=== PATIENT | female | born 1985 | race Two or more races ===

== ENCOUNTER 2025-01-29 08:08 | Emergency (ER) | payer MEDICAID, OTHER ==
[~2025-01-29] VITALS: Ht 165.1 cm; Wt 78.6 kg
--- NOTE | 2025-01-29 08:17 | ED.PDOC ---
History of Present Illness HPI Comments 39 y/o F, presents to the ED for CC of fever. Patient states, she has been experiencing symptoms of fever with associated diarrhea x3days. Patient reports, taking Tylenol last night (01/28/25) for symptoms. Upon arrival to the ED, patient's temperature read at 97.7F. Patient denies ear-pain, shortness of mary ath, chills, body-aches, or urinary symptoms. Chief Complaint: Fever Time Seen by MD: 08:15 Reviewed Notes: Nurses Notes, Medications, Allergies Information Source: Patient Mode of Arrival: Ambulatory Timing: Days Duration: Since onset Prehospital treatment: None Severity: Mild Symptoms: Fever Modifying Factors: Tylenol Associated Signs and Symptoms: None Past Medical History PAST MEDICAL HISTORY: Denies Surgical History: Denies all surgeries HOSPICE NURSE PRACTITIONER History: Denies all HOSPICE NURSE PRACTITIONER Hx Family History Family History: Unknown Social History Smoker: Non-Smoker Alcohol: Denies ETOH Use Drugs: Denies Drug Use Lives In: Home Constitutional: Fever EENTM: No Symptoms Reported Respiratory: No Symptoms Reported Cardiovascular: No Symptoms Reported Gastrointestinal: Diarrhea Genitourinary: No Symptoms Reported Neurological: No Symptoms Reported Musculoskeletal: No Symptoms Reported Integumentary: No Symptoms Reported Allergic/Immunocompromised: others Hematologic/Lymphatic: No Symptoms Reported Endocrine: No Symptoms Reported Psychiatric: No symptoms Reported All Other Systems: Reviewed and Negative Physical Exam General Appearance: No Apparent Distress, Normal, Other (Anxious appearing) HEENT: Normal ENT Inspection, Pharynx Normal Neck: Full Range of Motion, Non-Tender, Normal, Normal Inspection Respiratory: Chest Non-Tender, Lungs Clear, No Accessory Muscle Use, No Respiratory Distress, Normal Breath Sounds Cardiovascular: No Edema, No Murmur, No Gallop, Normal Peripheral Pulses, Regular Rate/Rhythm Breast Exam: Deferred Gastrointestinal: No Organomegaly, Non Tender, No Pulsatile Mass, Normal Bowel Sounds, Soft Genitalia: Deferred Pelvic: Deferred Rectal: Deferred Extremities: No calf tenderness, Normal capillary refill, Normal inspection, Normal range of motion, Non-tender, No pedal edema Musculoskeletal : Apperance: Normal Neurologic: Alert, annual greenhouse manager II-XII nml as Tested, No Motor Deficits, Normal Affect, Normal Mood, No Sensory Deficits Cerebellar Function: Normal Reflexes: Normal Skin: Dry, Normal Color, Warm Lymphatic: No Adenopathy Was a procedure done? Was a procedure done?: No Fever Differential Dx Differential Diagnosis: Viral Syndrome, Pharyngitis X-Ray, Labs, Meds, VS Vital Signs Date Time Temp Pulse Resp B/P (MAP) Pulse Ox O2 Delivery O2 Flow Rate FiO2 01/29/25 08:46 77 18 100 Room Air 01/29/25 08:46 98.2 77 18 112/81 (91) 100 98.2 01/29/25 08:10 97.7 79 15 106/86 98 97.7 Lab Test 01/29/25 09:32 01/29/25 08:43 Range/Units Urine Color Light-yellow Yellow Urine Clarity Turbid H Clear Urine pH 5.5 5.0-9.0 Urine Specific [place] 1.012 1.001-1.035 Urine Protein Negative Negative Urine Ketones Negative Negative Urine Blood 1+ H Negative /uL Urine Nitrite Negative Negative Urine Bilirubin Negative Negative Urine Urobilinogen Normal Negative mg/dL Urine Leukocyte Esterase Negative Negative /uL Urine RBC 2 0 - 4 /hpf Urine Microscopic WBC 2 0-5 /HPF Urine Squamous Epithelial Cells Few <5 /hpf Urine Bacteria None seen None Seen /hpf Urine Mucus Few None Seen Urine Glucose Normal Normal mg/dL White Blood Count 3.6 L 4.4-10.8 10^3/uL Red Blood Count 4.97 4.0-5.20 10^6/uL Hemoglobin 12.8 12.2-16.2 g/dL Hematocrit 39.5 36.0-46.0 % Mean Corpuscular Volume 79.5 L 80.0-100.0 fL Mean Corpuscular Hemoglobin 25.8 L 28.0-32.0 pg Mean Corpuscular Hemoglobin Concent 32.4 32.0-36.0 g/dL Red Cell Distribution Width 16.7 H 11.8-14.3 % Platelet Count 300 140-450 10^3/uL Mean Platelet Volume 8.1 6.9-10.8 fL Neutrophils (%) (Auto) 39.5 37.0-80.0 % Lymphocytes (%) (Auto) 43.2 10.0-50.0 % Monocytes (%) (Auto) 13.7 H 0.0-12.0 % Eosinophils (%) (Auto) 2.9 0.0-7.0 % Basophils (%) (Auto) 0.7 0.0-2.0 % Neutrophils # (Auto) 1.4 L 1.6-8.6 10 ^3/uL Lymphocytes # (Auto) 1.5 0.4-5.4 10 ^3/uL Monocytes # (Auto) 0.5 0-1.3 10 ^3/uL Eosinophils # (Auto) 0.1 0-0.8 10 ^3/uL Basophils # (Auto) 0 0-0.2 10 ^3/uL Nucleated Red Blood Cells 0.2 % Sodium Level 139 136-145 mmol/L Potassium Level 3.9 3.5-5.1 mmol/L Chloride Level 109 H 98-107 mmol/L Carbon Dioxide Level 22 20-31 mmol/L Anion Gap 8 5-15 Blood Urea Nitrogen 8 L 9-23 mg/dL Creatinine 0.75 0.550-1.02 mg/dL Glomerular Filtration Rate Calc 103 >90 mL/min BUN/Creatinine Ratio 10.7 10.0-20.0 Serum Glucose 89 74-106 mg/dL Calcium Level 9.1 8.7-10.4 mg/dL Current Medications Medications (Trade) Dose Ordered Sig/Isha Route Start Time Stop Time Status Last Admin Loperamide HCl (Imodium Capsule) 4 mg ONCE ONCE PO 01/29/25 08:30 01/29/25 08:32 DC 01/29/25 09:12 Sodium Chloride 1,000 ml @ 1,000 mls/hr Q1H ONCE IV 01/29/25 08:30 01/29/25 09:29 DC 01/29/25 09:12 Ondansetron HCl (Zofran) 4 mg ONCE ONCE IV 01/29/25 08:30 01/29/25 08:32 DC 01/29/25 09:11 Famotidine (Pepcid Injection) 20 mg ONCE ONCE IV 01/29/25 08:30 01/29/25 08:32 DC 01/29/25 09:11 Time of 1ST Reevaluation: 08:15 Reevaluation 1ST: Unchanged Patient Education/Counseling: Diagnosis, Treatment Family Education/Counseling: No Family Present Additional Information MEDICAL DECISION MAKING PRESENTATION & DIFFERENTIAL DIAGNOSIS 39-year-old female presenting with 3 days of vomiting, diarrhea, and subjective fevers. Differential diagnosis included Viral Gastroenteritis, Urinary Tract Infection (UTI), Bacterial Enteritis, Appendicitis, and dehydration/electrolyte derangement. DATA REVIEWED - CBC: No leukocytosis; rules out severe infectious etiology. - BMP: Benign; ruled out Acute Kidney Injury (MATIAS) and significant electrolyte imbalance despite history of GI losses. - UA: Unremarkable; ruled out UTI as source of symptoms. ED COURSE & RISK STRATIFICATION Patient required supportive care and parenteral management in the ED. - Interventions: IV Fluid resuscitation, Zofran for antiemesis, Loperamide for diarrhea, and Famotidine. - Re-evaluation: Symptoms improved post-intervention. Patient successfully completed a PO challenge (tolerating oral fluids) prior to discharge. DISPOSITION Discharge Home. - Diagnosis: Gastroenteritis. - Plan: Discharged with supportive care instructions, hydration plan, and strict return precautions for intractable vomiting, high fever, or localized abdominal pain. SEPSIS Sepsis Screen Vital Signs Date Time Temp Pulse Resp B/P (MAP) Pulse Ox O2 Delivery O2 Flow Rate FiO2 01/29/25 08:46 77 18 100 Room Air 01/29/25 08:46 98.2 77 18 112/81 (91) 100 98.2 01/29/25 08:10 97.7 79 15 106/86 98 97.7 Laboratory Tests Test 01/29/25 08:43 White Blood Count 3.6 10^3/uL (4.4-10.8) L Medications Medications Dose Ordered Sig/Isha Route Start Time Stop Time Status Last Admin Dose Admin Famotidine 20 mg ONCE ONCE IV 01/29/25 08:30 01/29/25 08:32 DC 01/29/25 09:11 Loperamide HCl 4 mg ONCE ONCE PO 01/29/25 08:30 01/29/25 08:32 DC 01/29/25 09:12 Ondansetron HCl 4 mg ONCE ONCE IV 01/29/25 08:30 01/29/25 08:32 DC 01/29/25 09:11 Sodium Chloride 1,000 ml @ 1,000 mls/hr Q1H ONCE IV 01/29/25 08:30 01/29/25 09:29 DC 01/29/25 09:12 Departure 1 Departure Time of Disposition: 09:59 Impression: Primary Impression: Acute gastroenteritis Disposition: 01 HOME / SELF CARE / HOMELESS Condition: Stable Additional Instructions: DISCHARGE INSTRUCTIONS Diagnosis: Viral Gastroenteritis ("Stomach Flu") You have been evaluated today for vomiting and diarrhea. Your exam and lab results were reassuring and did not show signs of a serious bacterial infection or severe dehydration. This is likely a viral infection that needs to run its course. HOME CARE INSTRUCTIONS 1. Hydration (Most Important): - Your goal is to prevent dehydration. Drink clear liquids in small amounts f requently. - Good options: Water, Pedialyte, Gatorade (diluted with water), chu grace, or broth. - Avoid: Alcohol, caffeine, and dairy products until you are feeling better. 2. Diet: - Start with a clear liquid diet. - Once your nausea settles, slowly advance to bland foods (the "BRAT" diet: Bananas, Rice, Applesauce, Adwolf). - Avoid spicy, greasy, or heavy meals for the next few days. 3. Medications: - You may take Tylenol (Acetaminophen) for fevers or body aches. - Avoid NSAIDs (Motrin/Advil/Ibuprofen) if you are having stomach pain, as these can irritate the stomach lining. - If you were prescribed anti-nausea medication (Zofran/Ondansetron), take it exactly as directed. 4. Hygiene: - Viral gastroenteritis is very contagious. Wash your hands frequently with soap and water, especially after using the restroom and before eating. RETURN TO THE EMERGENCY DEPARTMENT IF: - You cannot keep any liquids down for more than 12-24 hours. - You see blood or dark/tarry substance in your vomit or stool. - You have severe abdominal pain, especially in the lower right side. - You feel dizzy, lightheaded, or pass out (faint). - You have a high fever (over 103F) or a fever that does not go down with Tylenol. FOLLOW UP: - Follow up with your Primary Care Doctor if symptoms do not improve within 3-5 days. e-Prescriptions Ondansetron Odt 4MG Tab (ZOFRAN PO) 4 Mg Tb 4 MG PO TID PRN for 4 Days, #12 TAB ODT TAB-DISSOLVE IN MOUTH, THEN SWALLOW Prov: SHIRIN LINDA MD 01/29/25 Discharged With: Self Critical Care Note Critical Care Time?: No Stability Stability form required: No Heart Score Heart Score: Heart Score Response (Comments) Value History N/A 0 EKG N/A 0 Age N/A 0 Risk Factors N/A 0 Troponin N/A 0 Total 0 I personally scribed for SHIRIN LINDA MD ([email or web address]) on 01/29/25 at 08:17. Elect ronically submitted by Amanda Stuart ([email or web address]). I personally scribed for SHIRIN LINDA MD ([email or web address]) on 01/29/25 at 08:22. Electronically submitted by Amanda Stuart ([email or web address]). I personally scribed for SHIRIN LINDA MD ([email or web address]) on 01/29/25 at 08:31. Electronically submitted by Amanda Stuart ([email or web address]). SHIRIN LINDA MD Jan 29, 2025 08:17
[2025-01-29 08:46] VITALS: BP 112/81; PULSE 77; RESP 18; TEMP 98.2; O2SAT 100
[2025-01-29 09:06] LABS: Hematocrit 39.5 % (36.0-46.0); Hemoglobin 12.8 g/dL (12.2-16.2); Mean Corpuscular Hemoglobin 25.8 pg (28.0-32.0); Mean Corpuscular Volume 79.5 fL (80.0-100.0); Nucleated Red Blood Cells % 0.2 %
[2025-01-29] MEDS: FAMOTIDINE (10MG/ML) 2ML VL IV ONE (09:11)
[2025-01-29] MEDS: ONDANSETRON HCL 4 MG/2 ML VIAL IV ONE (09:11)
[2025-01-29 09:12] LABS: Potassium 3.9 mmol/L (3.5-5.1); Sodium 139 mmol/L (136-145)
[2025-01-29] MEDS: SODIUM CHLORIDE 0.9% 1,000 ML IV ONE (09:12)
[2025-01-29] MEDS: LOPERAMIDE HCL 2 MG CAP/TAB PO ONE (09:12)
[2025-01-29 09:13] LABS: Anion Gap 8 (5-15); Carbon Dioxide 22 mmol/L (20-31)
[2025-01-29 09:14] LABS: Calcium 9.1 mg/dL (8.7-10.4)
[2025-01-29 09:19] LABS: BUN/Creatinine Ratio 10.7 (10.0-20.0); Blood Urea Nitrogen 8 mg/dL (9-23); Chloride 109 mmol/L (98-107); Glucose 89 mg/dL (74-106)
[2025-01-29 09:47] LABS: Urine Protein, UAD Negative (Negative)
[2025-01-29] MEDS ORDERED: ZOFR4T PO (10:01)
== END 2025-01-29 10:31 | disposition home or self-care (01) ==
LOC: ER 08:08
DX: A08.4 Viral intestinal infection, unspecified (principal); Z79.899 Other long term (current) drug therapy
CPT/HCPCS: 36415; 80048; 81001; 85025; 96361; 96374; 96375; 99284; J2405; J3490; J7030